=== PATIENT | female | born 1935 | race Hispanic/Latino ===

== ENCOUNTER 2019-12-02 22:51 | Emergency (ER) | payer MEDICARE ==
[2019-12-02 23:25] LABS: APPEARANCE,URINE Clear (CLEAR); BILIRUBIN,URINE Negative (NEGATIVE); COLOR,URINE Dark Yellow (YELLOW); GLUCOSE, URINE (UA) Negative (NEGATIVE); KETONES,URINE Trace mg/dL (NEGATIVE); LEUKOCYTE ESTERASE ,URINE Negative (NEGATIVE); NITRATE,URINE Positive (NEGATIVE); OCCULT BLOOD,URINE Negative (NEGATIVE); PROTEIN,URINE Negative (NEGATIVE)
[2019-12-02 23:36] LABS: RBC,URINE None Seen /HPF (0-1); WBC,URINE None Seen /HPF (0-1)
[2019-12-02 23:37] LABS: BACTERIA,URINE Few /HPF (None Seen); MUCUS,URINE Rare LPF (None Seen); SQUAMOUS EPITHELIAL CELL,UR Rare /HPF (0-2)
[2019-12-06] MEDS ORDERED: ONDA-104 PO ×2 (17:10)
[2019-12-06] MEDS ORDERED: OLME20TA22 PO ×2 (17:10)
[2019-12-06] MEDS ORDERED: PHEN-948 PO ×2 (17:10)
[2019-12-06] MEDS ORDERED: TRAM50TA4 PO ×2 (17:10)
[2019-12-06] MEDS ORDERED: SULF1TAB89 PO ×2 (17:10)
== END 2019-12-03 00:20 | disposition home or self-care (01) ==
LOC: EDH 22:51
DX: N39.0 Urinary tract infection, site not specified (principal); M19.90 Unspecified osteoarthritis, unspecified site; I10 Essential (primary) hypertension; Z90.49 Acquired absence of other specified parts of digestive tract; Z90.710 Acquired absence of both cervix and uterus; Z88.0 Allergy status to penicillin
CPT/HCPCS: 81001; 87088

== ENCOUNTER 2019-12-05 20:25 | Inpatient (IN) | payer MEDICARE ==
[~2019-12-05] VITALS: Ht 165.1 cm; Wt 63.5 kg
[2019-12-05 21:42] LABS: BASOPHILS % (AUTO) 0.1 % (0.0-5.0); EOSINOPHILS % (AUTO) 0.3 % (0.0-8.0); HEMATOCRIT 27.7 % (36-48); LYMPHOCYTES % (AUTO) 6.1 % (21.0-51.0); MEAN CORPUSCULAR HEMOGLOBIN 28.4 pg (27.0-33.0); MEAN CORPUSCULAR HGB CONC 37.2 g/dL (32.0-36.0); MEAN CORPUSCULAR VOLUME 76.3 fL (79-99); MONOCYTES % (AUTO) 8.5 % (3.0-13.0); NEUTROPHILS % (AUTO) 84.2 % (40.0-77.0); PLATELET COUNT (AUTO) 291 K/uL (130-400); RED BLOOD CELL COUNT(AUTO) 3.63 MIL/uL (4.00-5.50); RED CELL DISTRIBUTION WIDTH 11.5 % (11.0-15.5); WHITE BLOOD COUNT (AUTO) 11.1 K/uL (4.8-10.8)
[2019-12-05 22:01] LABS: INR 0.91 (0.85-1.15); PROTHROMBIN TIME 9.9 SEC (9.6-11.6)
[2019-12-05 22:13] LABS: ALANINE AMINOTRANSFERASE 37 U/L (12-78); ALBUMIN 3.4 g/dL (3.5-5.0); ASPARTATE AMINOTRANSFERASE 55 U/L (10-37); BILIRUBIN,TOTAL 0.5 mg/dL (0.2-1.0); CARBON DIOXIDE 24 mmol/L (21-32); CREATININE 1.1 mg/dL (0.5-1.5); GLOMERULAR FILTR. RATE CALC 50 mL/min (>60); GLUCOSE,RANDOM 112 mg/dL (70-105); MYOGLOBIN 555 ng/mL (10-92); POTASSIUM 4.4 mmol/L (3.5-5.1); TOTAL PROTEIN, SERUM 6.4 g/dL (6.0-8.3); TROPONIN I < 0.04 ng/mL (0.00-0.06); UREA NITROGEN, BLOOD 15 mg/dL (7-18)
[2019-12-05] MEDS ORDERED: SODIUM CHLORIDE 0.9% 1000ML 1,000 ML IV ONE (22:24)
[2019-12-05 22:31] LABS: SODIUM SERUM 103 mmol/L (136-145)
[2019-12-05 22:32] LABS: CHLORIDE 71 mmol/L (101-111); CREATINE KINASE, TOTAL 905 U/L (21-232)
[2019-12-05] MEDS: SODIUM CHLORIDE 0.9% 1000ML 1,000 ML IV SCH (23:50)
[2019-12-05 23:55] LABS: APPEARANCE,URINE Clear (CLEAR); BILIRUBIN,URINE Negative (NEGATIVE); COLOR,URINE Dark Yellow (YELLOW); GLUCOSE, URINE (UA) Negative (NEGATIVE); KETONES,URINE Trace mg/dL (NEGATIVE); LEUKOCYTE ESTERASE ,URINE Negative (NEGATIVE); NITRATE,URINE Positive (NEGATIVE); OCCULT BLOOD,URINE Negative (NEGATIVE); PROTEIN,URINE Negative (NEGATIVE)
[2019-12-06] VITALS (10 sets, daily range): BP systolic 107–131; BP diastolic 46–59
[2019-12-06] MEDS ORDERED: LACTULOSE 20 GM/30 ML UDCUP PO PRN
[2019-12-06] MEDS ORDERED: HYDRALAZINE HCL 20 MG/ML VIAL IV PRN
[2019-12-06] MEDS ORDERED: ONDANSETRON HCL 4 MG/2 ML VIAL IV PRN
[2019-12-06] MEDS ORDERED: ACETAMINOPHEN 325 MG TAB PO PRN
[2019-12-06 00:07] LABS: BACTERIA,URINE Rare /HPF (None Seen); RBC,URINE 0-1 /HPF (0-1); WBC,URINE 0-1 /HPF (0-1)
[2019-12-06] MEDS ORDERED: SODIUM CHLORIDE 0.9% 1000ML 1,000 ML IV ONE ×2 (00:30→08:11)
[2019-12-06] MEDS ORDERED: MORPHINE SULFATE 2 MG/ML 1ML SYG IVP PRN (01:15)
[2019-12-06] MEDS ORDERED: LEVOFLOXACIN 500 MG/D5W 100 ML 100 ML ONE (03:05)
[2019-12-06 07:05] LABS: EOSINOPHILS % (AUTO) 0.3 % (0.0-8.0); HEMATOCRIT 25.1 % (36-48); LYMPHOCYTES % (AUTO) 6.4 % (21.0-51.0); MEAN CORPUSCULAR HEMOGLOBIN 28.4 pg (27.0-33.0); MEAN CORPUSCULAR HGB CONC 37.1 g/dL (32.0-36.0); MEAN CORPUSCULAR VOLUME 76.8 fL (79-99); MONOCYTES % (AUTO) 11.9 % (3.0-13.0); NEUTROPHILS % (AUTO) 80.5 % (40.0-77.0); PLATELET COUNT (AUTO) 238 K/uL (130-400); RED BLOOD CELL COUNT(AUTO) 3.27 MIL/uL (4.00-5.50); RED CELL DISTRIBUTION WIDTH 11.6 % (11.0-15.5)
[2019-12-06 07:27] LABS: POTASSIUM 4.1 mmol/L (3.5-5.1)
[2019-12-06] MEDS ORDERED: ENOXAPARIN SODIUM 30 MG/0.3 ML SQ ONE (08:10)
[2019-12-06] MEDS ORDERED: FAMOTIDINE 20MG TAB 20 MG TAB ONE (08:10)
[2019-12-06] MEDS: FAMOTIDINE 20MG TAB 20 MG TAB PO SCH (09:00)
[2019-12-06] MEDS: ENOXAPARIN SODIUM 30 MG/0.3 ML SQ SCH (09:00)
[2019-12-06] MEDS: SODIUM CHLORIDE 0.9% 1000ML 1,000 ML IV SCH ×2 (09:50→19:50)
--- NOTE | 2019-12-06 16:31 | NUR ---
dcp: home SW spoke to pt's daughter Roselyn Keys [phone]. Dgtr reports pt lives with her Albert, their son and his and kids 21,15 &4 live with them. Son and family assist as needed, pt is independent, no DME or in home care services. PCP is Lorne Dominique, and they use [facility] for rx medications. Plan is for pt to return to home with family Addendum: 12/06/19 at 1635 by MELVINA DELGADO SS Amended: Links added.
[2019-12-06] MEDS ORDERED: OLME20TA22 PO (17:10)
[2019-12-06] MEDS ORDERED: ONDA-104 PO (17:10)
[2019-12-06] MEDS ORDERED: SULF1TAB89 PO (17:10)
[2019-12-06] MEDS ORDERED: TRAM50TA4 PO (17:10)
[2019-12-06] MEDS ORDERED: PHEN-948 PO (17:10)
--- NOTE | 2019-12-06 19:00 | NUR ---
Report received from Aidee HANNON and Lois HANNON. Stated Dr Vargas spoke with daughter regarding planned surgical procedure, consent obtained. Patient awaiting OR procedure. Patient denies pain, sob.
--- NOTE | 2019-12-06 19:52 | NUR ---
To Or accompanied by OR nurses
[2019-12-06] MEDS ORDERED: PROPOFOL 10 MG/ML 20ML VIAL IV ONE (20:43)
[2019-12-06] MEDS ORDERED: ONDANSETRON HCL 4 MG/2 ML VIAL ONE (20:43)
[2019-12-06] MEDS ORDERED: LIDOCAINE PF 2% 5ML ABBOJECT ONE (20:43)
[2019-12-06] MEDS ORDERED: FENTANYL CITRATE PF 50 MCG/1 ML 2ML VIAL ONE (20:44)
[2019-12-06] MEDS ORDERED: MIDAZOLAM HCL 1 MG/ML 2ML VIAL ONE (20:51)
[2019-12-06] MEDS ORDERED: EPHEDRINE SULFATE 50 MG/ML AMPULE ONE (21:02)
[2019-12-06 23:22] LABS: POTASSIUM 3.7 mmol/L (3.5-5.1)
[2019-12-07] VITALS (18 sets, daily range): BP systolic 105–156; BP diastolic 43–65
[2019-12-07] MEDS: SODIUM CHLORIDE 0.9% 1000ML 1,000 ML IV SCH ×2 (03:45→14:39)
[2019-12-07 03:54] LABS: BASOPHILS % (AUTO) 0.2 % (0.0-5.0); EOSINOPHILS % (AUTO) 1.1 % (0.0-8.0); HEMATOCRIT 24.9 % (36-48); LYMPHOCYTES % (AUTO) 13.9 % (21.0-51.0); MEAN CORPUSCULAR HEMOGLOBIN 27.8 pg (27.0-33.0); MEAN CORPUSCULAR HGB CONC 34.9 g/dL (32.0-36.0); MEAN CORPUSCULAR VOLUME 79.6 fL (79-99); MONOCYTES % (AUTO) 15.3 % (3.0-13.0); NEUTROPHILS % (AUTO) 67.8 % (40.0-77.0); PLATELET COUNT (AUTO) 240 K/uL (130-400); RED BLOOD CELL COUNT(AUTO) 3.13 MIL/uL (4.00-5.50); RED CELL DISTRIBUTION WIDTH 12.2 % (11.0-15.5); WHITE BLOOD COUNT (AUTO) 5.2 K/uL (4.8-10.8)
[2019-12-07 04:08] LABS: CREATININE 0.9 mg/dL (0.5-1.5)
[2019-12-07] MEDS: FAMOTIDINE 20MG TAB 20 MG TAB PO SCH (08:50)
[2019-12-07] MEDS: ACETAMINOPHEN 325 MG TAB PO PRN ×2 (08:54→18:30)
[2019-12-07] MEDS: ENOXAPARIN SODIUM 30 MG/0.3 ML SQ SCH (08:58)
--- NOTE | 2019-12-07 09:36 | NUR ---
NE Plan Patient not feeling well to speak to CM. [facility] currently in pain. Notified bedside nurse Piotr. Called daughter Roselyn who states plan is for patient to return home, but interested in HH. [facility] patient has had [facility] in the past and would like to use their services. Plan B would be with [facility]. Spoke to Leticia with [facility] HH ph: [phone] who states they are accepting new patients and would be able to provide PT/OT or as ordered by physician. CD Addendum: 12/07/19 at 0952 by MAHESH BENÍTEZ Amended: Links added.
[2019-12-07 11:29] LABS: PROTEIN,URINE RANDOM 33.8 mg/dL (0-11.9)
[2019-12-07 22:41] LABS: POTASSIUM 3.7 mmol/L (3.5-5.1)
[2019-12-08] MEDS ORDERED: LEVOFLOXACIN 500 MG/D5W 100 ML 100 ML IV SCH (03:00)
[2019-12-08] MEDS: SODIUM CHLORIDE 0.9% 1000ML 1,000 ML IV SCH (03:24)
[2019-12-08 04:00] VITALS: BP 174/73
[2019-12-08 04:59] LABS: BASOPHILS % (AUTO) 0.5 % (0.0-5.0); HEMATOCRIT 24.1 % (36-48); MEAN CORPUSCULAR HEMOGLOBIN 28.4 pg (27.0-33.0); MEAN CORPUSCULAR HGB CONC 34.9 g/dL (32.0-36.0); MEAN CORPUSCULAR VOLUME 81.4 fL (79-99); MONOCYTES % (AUTO) 12.8 % (3.0-13.0); NEUTROPHILS % (AUTO) 60.1 % (40.0-77.0); PLATELET COUNT (AUTO) 230 K/uL (130-400); RED BLOOD CELL COUNT(AUTO) 2.96 MIL/uL (4.00-5.50); RED CELL DISTRIBUTION WIDTH 12.8 % (11.0-15.5); WHITE BLOOD COUNT (AUTO) 4.3 K/uL (4.8-10.8)
[2019-12-08 05:13] LABS: CREATININE 0.8 mg/dL (0.5-1.5); POTASSIUM 3.5 mmol/L (3.5-5.1)
[2019-12-08 06:25] LABS: % IRON SATURATION 31.8 % (22-44)
[2019-12-08 08:00] VITALS: BP 110/52
[2019-12-08] MEDS: FAMOTIDINE 20MG TAB 20 MG TAB PO SCH ×2 (09:23→10:00)
[2019-12-08] MEDS: ENOXAPARIN SODIUM 30 MG/0.3 ML SQ SCH ×2 (09:23→10:00)
[2019-12-08 12:00] VITALS: BP 136/68
--- NOTE | 2019-12-08 15:14 | NUR ---
CM NOTE/DC PLANNING MEET WITH PATIENT IN ROOM REGARDING NEW ORDER FOR SNF. PER PATIENT, WISHES TO GO HOME. PER PT, REQUIRES [facility] X[facility]. DAUGHTER, JOHNATHAN BEATTY CALLED AND RELAYED INFORMATION. PER DAUGHTER, DOES NOT WANT HER MOTHER IN SNF. PCP, [facility] CALL[facility]. PER STAFF AT [facility], PATIENT TO SEE PCP FOR REFERRAL AFTER HOSPITAL DISCHARGE. DAUGHTER CALLED AND RELAYED MESSAGE, OK WITH DAUGHTER TO TAKE PATIENT TO PCP FOR HH WITH PT REFERRAL. TIMMY HANNON, PRIMARY NURSE, AWARE AND WILL PASS ON REPORT TO MAKE APPOINTMENT WITH PCP WITHIN 2/3 DAYS OF DC TO SEE PCP FOR SAID REFERRAL.
[2019-12-08 16:00] VITALS: BP 140/56
[2019-12-08 20:00] VITALS: BP 158/63
[2019-12-08] MEDS: ACETAMINOPHEN 325 MG TAB PO PRN (22:45)
[2019-12-09] VITALS: BP 153/76
[2019-12-09 04:00] VITALS: BP 166/65
[2019-12-09 07:00] VITALS: BP 153/64
[2019-12-09] MEDS: FAMOTIDINE 20MG TAB 20 MG TAB PO SCH (09:42)
[2019-12-09] MEDS: ACETAMINOPHEN 325 MG TAB PO PRN (09:43)
[2019-12-09] MEDS: ENOXAPARIN SODIUM 30 MG/0.3 ML SQ SCH (09:48)
[2019-12-09 11:00] VITALS: BP 152/80
--- NOTE | 2019-12-09 11:20 | NUR ---
CALLED PT.'S DAUGHTER, JOHNATHAN BEATTY, AND UPDATED ON STATUS REQUESTED BY HERSELF; VERBALIZED UNDERSTANDING.
--- NOTE | 2019-12-09 14:15 | NUR ---
F/C REMOVED BY Sera ZAMARRIPA RN.
[2019-12-09 16:00] VITALS: BP 182/72
--- NOTE | 2019-12-09 17:15 | NUR ---
PT. TOOK OWN [facility] HOME MEDICATION. STATES, "BLOOD PRESSURE IS TOO HIGH."
[2019-12-10] MEDS ORDERED: OLMESARTAN MEDOXOMIL 20 MG PO SCH (09:00)
[2019-12-10] MEDS ORDERED: LOSARTAN 100 MG TABLET PO SCH (09:00)
== END 2019-12-09 15:35 | disposition home or self-care (01) | DRG 562 ==
LOC: EDH 20:25 → EDHIP 23:50 → 2CH 12-06 16:50 → 4BH 12-07 18:11
PROVIDERS: ADMIT Hospitalist; ATTEND Hospitalist
PROC: 0RSJXZZ Reposition Right Shoulder Joint, External Approach (ICD-10-PCS; principal; 2019-12-06 20:51)
DX: S43.014A Anterior dislocation of right humerus, initial encounter (principal); G93.41 Metabolic encephalopathy; M48.56XA Collapsed vertebra, not elsewhere classified, lumbar region, initial encounter for fracture; E87.1 Hypo-osmolality and hyponatremia; N39.0 Urinary tract infection, site not specified; K57.30 Diverticulosis of large intestine without perforation or abscess without bleeding; K80.20 Calculus of gallbladder without cholecystitis without obstruction; E11.9 Type 2 diabetes mellitus without complications; E86.9 Volume depletion, unspecified; F03.90 Unspecified dementia, unspecified severity, without behavioral disturbance, psychotic disturbance, mood disturbance, and anxiety; I10 Essential (primary) hypertension; J44.9 Chronic obstructive pulmonary disease, unspecified; R62.7 Adult failure to thrive; Z87.440 Personal history of urinary (tract) infections; Z90.710 Acquired absence of both cervix and uterus; M19.90 Unspecified osteoarthritis, unspecified site; Z88.0 Allergy status to penicillin; Z88.8 Allergy status to other drugs, medicaments and biological substances; D64.9 Anemia, unspecified; Y93.89 Activity, other specified; Y92.89 Other specified places as the place of occurrence of the external cause; Y99.8 Other external cause status; W18.39XA Other fall on same level, initial encounter
CPT/HCPCS: 36415; 70450; 71045; 72170; 73030; 73552; 74176; 80048; 80053; 81001; 82533; 82550; 82570; 83540; 83550; 83605; 83874; 83935; 84145; 84156; 84165; 84443; 84484; 85025; 85610; 85730; 87040; 87088; 93005; 93306; 93356; 93880; 97039; 99291; A4565; A4606; G0378; J0360; J1650; J1956; J2001; J2250; J2405; J2704; J3010; J3490; J7030

== ENCOUNTER → 2021-04-02 | Outpatient (CLI) | payer MEDICARE ==
[~2021-04-02] MED LIST: OLME20TA22 PO; ONDA-104 PO; PHEN-948 PO; SULF1TAB89 PO; TRAM50TA4 PO
== END | disposition home or self-care (01) ==
LOC: RAH 12:54
PROVIDERS: ATTEND Orthopaedic Surgery
DX: S42.291A Other displaced fracture of upper end of right humerus, initial encounter for closed fracture (principal); M25.411 Effusion, right shoulder; X58.XXXA Exposure to other specified factors, initial encounter; Y93.89 Activity, other specified; Y92.89 Other specified places as the place of occurrence of the external cause; Y99.8 Other external cause status
CPT/HCPCS: 73221

== ENCOUNTER 2021-06-06 09:00 | Inpatient (IN) | payer MEDICARE ==
[~2021-06-06] VITALS: Ht 162.6 cm; Wt 65.3 kg
[~2021-06-06 09:00] MED LIST changes: -ONDA-104 PO; -PHEN-948 PO; -SULF1TAB89 PO; -TRAM50TA4 PO
[2021-06-06 10:06] LABS: APPEARANCE,URINE Cloudy (CLEAR); BILIRUBIN,URINE Negative (NEGATIVE); COLOR,URINE Yellow (YELLOW); GLUCOSE, URINE (UA) Negative (NEGATIVE); KETONES,URINE Negative (NEGATIVE); LEUKOCYTE ESTERASE ,URINE Large (NEGATIVE); NITRATE,URINE Negative (NEGATIVE); OCCULT BLOOD,URINE Trace (NEGATIVE); PH,URINE 5.5 (5.0-8.0); PROTEIN,URINE Negative (NEGATIVE); UROBILINOGEN,URINE 0.2 mg/dL (0.2-1.0)
[2021-06-06 10:22] LABS: BACTERIA,URINE Moderate /HPF (None Seen); SQUAMOUS EPITHELIAL CELL,UR Few /HPF (0-2)
[2021-06-06 10:22] LABS: INR 0.99 (0.85-1.15); PROTHROMBIN TIME 10.8 SEC (9.6-11.6)
[2021-06-06 10:27] VITALS: BP 188/90
[2021-06-06] MEDS ORDERED: MONT-39 PO (11:12)
[2021-06-06] MEDS ORDERED: LEVO25CA4 PO (11:12)
[2021-06-06] MEDS ORDERED: OMEP20CA12 PO (11:12)
[2021-06-06] MEDS ORDERED: ATOR10 PO (11:12)
[2021-06-10] VITALS (24 sets, daily range): BP systolic 109–141; BP diastolic 60–76
[2021-06-10] MEDS ORDERED: LACTATED RINGERS 1000ML 1,000 ML IV ONE (08:34)
[2021-06-10] MEDS ORDERED: CLINDAMYCIN IVPB 900MG/50ML 50 ML IV ONE (10:05)
[2021-06-10] MEDS ORDERED: CLINDAMYCIN 900MG/6ML INJ ONE (12:38)
[2021-06-10] MEDS ORDERED: LEVOFLOXACIN 500 MG/D5W 100 ML 100 ML ONE (12:46)
[2021-06-10] MEDS ORDERED: LIDOCAINE PF 100MG/5ML (2%) SYRINGE 5ML ONE (12:47)
[2021-06-10] MEDS ORDERED: MIDAZOLAM HCL 1 MG/ML 2ML VIAL ONE (12:47)
[2021-06-10] MEDS ORDERED: ROCURONIUM 10MG/1ML SYR 10 MG/ML ML ONE (12:47)
[2021-06-10] MEDS ORDERED: PROPOFOL 10 MG/ML 20ML VIAL IV ONE (12:47)
[2021-06-10] MEDS ORDERED: FENTANYL CITRATE PF 50 MCG/1 ML 2ML VIAL ONE (12:47)
[2021-06-10] MEDS ORDERED: SUCCINYLCHOLINE CHLORIDE 20 MG/ML 10 ML VIAL ONE (12:47)
[2021-06-10] MEDS ORDERED: ROPIVACAINE 0.5% 5MG/ML 30ML IJ ONE (12:50)
[2021-06-10] MEDS ORDERED: TRANEXAMIC ACID 1000MG/10ML ONE ×2 (12:53→15:46)
[2021-06-10] MEDS ORDERED: EPHEDRINE SULFATE 50 MG/ML AMPULE ONE (13:41)
[2021-06-10] MEDS ORDERED: CLINDAMYCIN 900MG/6ML INJ IJ ONE (13:58)
[2021-06-10] MEDS ORDERED: POTASSIUM CHLORIDE 10% ELIXIR 20 MEQ/15 ML UDCUP PO PRN (16:00)
[2021-06-10] MEDS ORDERED: ONDANSETRON 4MG INJ IVP PRN (16:00)
[2021-06-10] MEDS ORDERED: TEMAZEPAM 15 MG CAPSULE PO PRN (16:00)
[2021-06-10] MEDS ORDERED: POTASSIUM CHLORIDE 20MEQ/100ML 100 ML IV PRN (16:00)
[2021-06-10] MEDS ORDERED: LIDOCAINE HCL-MPF 1% 2ML VIAL IV PRN (16:00)
[2021-06-10] MEDS ORDERED: KCL 20 MEQ ERTAB PO PRN (16:00)
[2021-06-10] MEDS ORDERED: TRAMADOL HCL 50 MG TABLET PO PRN (16:00)
[2021-06-10] MEDS ORDERED: KETOROLAC 15MG/ML VIAL (15MG/ML) IV PRN (16:00)
[2021-06-10] MEDS ORDERED: OXYCODONE HCL 5 MG TAB PO PRN ×2 (16:00)
[2021-06-10] MEDS ORDERED: DiphenhydrAMINE HCL 50 MG/ML VIAL IVP PRN (16:00)
[2021-06-10] MEDS ORDERED: CALCIUM CARB 500MG PO PRN (16:00)
[2021-06-10] MEDS ORDERED: 0.9%NACL 1000ML 1,000 ML IV SCH (16:00)
[2021-06-10] MEDS: ACETAMINOPHEN 500 MG TABLET PO SCH ×2 (16:00→23:33)
[2021-06-10] MEDS ORDERED: FE FUMARATE/FA/MV, MIN COMB#15 1 TAB PO PRN (16:00)
[2021-06-10] MEDS ORDERED: GLYCOPYRROLATE 1 MG/5 ML SYRINGE ONE (16:01)
[2021-06-10] MEDS ORDERED: NEOSTIGMINE 5MG/5ML SYR IV ONE (16:01)
[2021-06-10] MEDS: ASPIRIN 81 MG EC TAB PO SCH (21:15)
[2021-06-10] MEDS: CLINDAMYCIN IVPB 900MG/50ML 50 ML IV SCH (21:15)
[2021-06-10] MEDS: CELECOXIB 200 MG CAP PO SCH (21:15)
[2021-06-10] MEDS: ATORVASTATIN 10 MG TABLET PO SCH (21:15)
[2021-06-11] VITALS (7 sets, daily range): BP systolic 117–145; BP diastolic 51–74
[2021-06-11] MEDS: CLINDAMYCIN IVPB 900MG/50ML 50 ML IV SCH (04:56)
[2021-06-11 05:07] LABS: HEMATOCRIT 28.3 % (36-48); MEAN CORPUSCULAR HEMOGLOBIN 28.4 pg (27.0-33.0); MEAN CORPUSCULAR HGB CONC 32.2 g/dL (32.0-36.0); MEAN CORPUSCULAR VOLUME 88.4 fL (79-99); RED BLOOD CELL COUNT(AUTO) 3.2 MIL/uL (4.00-5.50); RED CELL DISTRIBUTION WIDTH 12.4 % (11.0-15.5); WHITE BLOOD COUNT (AUTO) 8.4 K/uL (4.8-10.8)
[2021-06-11 05:15] LABS: CREATININE 1.1 mg/dL (0.5-1.5)
[2021-06-11] MEDS: LEVOTHYROXINE 25 MCG TABLET PO SCH (05:40)
[2021-06-11] MEDS: LEVOFLOXACIN 500 MG TABLET PO SCH (08:25)
[2021-06-11] MEDS: MONTELUKAST SODIUM 10 MG TAB PO SCH (08:26)
[2021-06-11] MEDS: ASPIRIN 81 MG EC TAB PO SCH ×2 (08:26→20:03)
[2021-06-11] MEDS: LOSARTAN 100 MG TABLET PO SCH (08:26)
[2021-06-11] MEDS: PANTOPRAZOLE 40 MG TAB DR PO SCH (08:26)
[2021-06-11] MEDS: CELECOXIB 200 MG CAP PO SCH ×2 (08:26→20:03)
[2021-06-11] MEDS: ACETAMINOPHEN 500 MG TABLET PO SCH ×3 (08:27→23:37)
[2021-06-11] MEDS: POLYETHYLENE GLYCOL 3350 17 GM POWD.PACK PO SCH (08:27)
[2021-06-11] MEDS: ATORVASTATIN 10 MG TABLET PO SCH (20:03)
[2021-06-12 05:07] VITALS: BP 139/57
[2021-06-12] MEDS: LEVOTHYROXINE 25 MCG TABLET PO SCH (05:15)
[2021-06-12 07:30] VITALS: BP 153/61
[2021-06-12] MEDS: PANTOPRAZOLE 40 MG TAB DR PO SCH (08:34)
[2021-06-12] MEDS: LOSARTAN 100 MG TABLET PO SCH (08:34)
[2021-06-12] MEDS: MONTELUKAST SODIUM 10 MG TAB PO SCH (08:34)
[2021-06-12] MEDS: LEVOFLOXACIN 500 MG TABLET PO SCH (08:34)
[2021-06-12] MEDS: ACETAMINOPHEN 500 MG TABLET PO SCH ×2 (08:34→15:55)
[2021-06-12] MEDS: ASPIRIN 81 MG EC TAB PO SCH (08:34)
[2021-06-12] MEDS: CELECOXIB 200 MG CAP PO SCH (08:34)
[2021-06-12] MEDS: POLYETHYLENE GLYCOL 3350 17 GM POWD.PACK PO SCH (08:34)
[2021-06-12 11:13] VITALS: BP 129/59
[2021-06-12] MEDS ORDERED: HYDR-4060 PO (11:18)
[2021-06-12] MEDS ORDERED: FE F1CAP9 PO (11:18)
[2021-06-13] MEDS ORDERED: BISACODYL 10 MG SUPP.RECT RC PRN (16:00)
== END 2021-06-12 15:45 | disposition home health service (06) | DRG 483 ==
LOC: EDSTATUS 09:00 → DAHIP 06-10 08:30 → OBSVTOIN 06-10 08:30 → 4AH 06-10 17:35
PROVIDERS: ADMIT Orthopaedic Surgery; ATTEND Orthopaedic Surgery
PROC: 0RRJ00Z Replacement of Right Shoulder Joint with Reverse Ball and Socket Synthetic Substitute, Open Approach (ICD-10-PCS; principal; 2021-06-10 13:54)
DX: M24.411 Recurrent dislocation, right shoulder (principal); M75.121 Complete rotator cuff tear or rupture of right shoulder, not specified as traumatic; M21.821 Other specified acquired deformities of right upper arm; Z20.822 Contact with and (suspected) exposure to COVID-19; M25.311 Other instability, right shoulder; G89.29 Other chronic pain; E03.9 Hypothyroidism, unspecified; Y93.89 Activity, other specified; Y92.89 Other specified places as the place of occurrence of the external cause; Y99.8 Other external cause status; E78.00 Pure hypercholesterolemia, unspecified; Z88.0 Allergy status to penicillin; Z90.710 Acquired absence of both cervix and uterus; Z87.39 Personal history of other diseases of the musculoskeletal system and connective tissue
CPT/HCPCS: 36415; 73030; 80048; 81001; 85027; 85610; 87077; 87088; 87186; 87635; 87641; 97039; A4565; C1776; G0378; J0330; J1956; J2001; J2250; J2704; J2710; J2795; J3010; J3490; J7120

== ENCOUNTER 2021-06-06 09:58 | Emergency (ER) | payer MEDICARE ==
[~2021-06-06] VITALS: Ht 162.6 cm; Wt 63.5 kg
[~2021-06-06 09:58] MED LIST changes: +ONDA-104 PO; +PHEN-948 PO; +SULF1TAB89 PO; +TRAM50TA4 PO
[2021-06-06] MEDS ORDERED: OMEP20CA12 PO (11:12)
[2021-06-06] MEDS ORDERED: LEVO25CA4 PO (11:12)
[2021-06-06] MEDS ORDERED: MONT-39 PO (11:12)
[2021-06-06] MEDS ORDERED: ATOR10 PO (11:12)
[2021-06-06] MEDS ORDERED: ETOMIDATE 20MG VIAL ONE (11:37)
[2021-06-06 13:18] VITALS: BP 157/82
== END 2021-06-06 13:41 | disposition home or self-care (01) ==
LOC: EDH 09:58
DX: S43.014A Anterior dislocation of right humerus, initial encounter (principal); E78.00 Pure hypercholesterolemia, unspecified; I10 Essential (primary) hypertension; Z88.0 Allergy status to penicillin; Z79.899 Other long term (current) drug therapy; X58.XXXA Exposure to other specified factors, initial encounter; Y93.89 Activity, other specified; Y92.89 Other specified places as the place of occurrence of the external cause; Y99.8 Other external cause status
CPT/HCPCS: 23650; 73020; 73030; 99285; J3490